=== PATIENT | male | born 1985 | race Caucasian/White ===

== ENCOUNTER 2019-02-14 16:57 | Emergency (ER) | payer OTHER ==
[~2019-02-14] VITALS: Ht 170.2 cm; Wt 70.3 kg
[2019-02-14] MEDS ORDERED: EAR DROPS15 ML OT (17:05)
== END 2019-02-14 18:53 | disposition home or self-care (01) ==
LOC: ER 16:57
DX: H61.21 Impacted cerumen, right ear (principal)